=== PATIENT | male | born 1995 ===

== ENCOUNTER 2017-11-07 23:57 | Emergency (ER) | payer BC ==
[2017-11-08 00:42] VITALS: BP 117/76; PULSE 90; RESP 16; TEMP 98.3; O2SAT 98
--- NOTE | 2017-11-08 00:56 | C.PDOC ---
History Of Present Illness 22 year old male presents to the ED c/o right earache for the past 2 days. Patient reports he was swimming a lot during November 04. Patient denies ear D/C, fever, chills, nausea, vomit, rash. Time Seen by Provider: 11/08/17 00:51 Chief Complaint (Nursing): ENT Problem History Per: Patient History/Exam Limitations: None Onset/Duration Of Symptoms: Days Current Symptoms Are (Timing): Still Present Quality (Ear): Pain W/Touch Symptoms Have Been: Continuous Recent Aspirin Use: No Past Medical History Reviewed: Historical Data, Nursing Documentation, Vital Signs Vital Signs: Last Vital Signs Temp 98.3 F 11/08/17 00:36 Pulse 90 11/08/17 00:36 Resp 16 11/08/17 00:36 BP 117/76 11/08/17 00:36 Pulse Ox 98 11/08/17 00:56 - Medical History PMH: No Chronic Diseases Surgical History: Appendectomy, Tonsillectomy Family History: States: Unknown Family Hx - Social History Hx Alcohol Use: Yes Hx Substance Use: No - Immunization History Hx Tetanus Toxoid Vaccination: No Hx Influenza Vaccination: No Hx Pneumococcal Vaccination: No Review Of Systems Constitutional: Negative for: Fever, Chills ENT: Positive for: Ear Pain. Negative for: Ear Discharge, Nose Discharge, Throat Pain, Throat Swelling Respiratory: Negative for: Cough, Shortness of Breath Gastrointestinal: Negative for: Nausea, Vomiting Skin: Negative for: Rash Physical Exam - Physical Exam Appears: Non-toxic, No Acute Distress Skin: Normal Color, Warm, Dry Head: Atraumatic, Normacephalic, No Swelling Eye(s): bilateral: Normal Inspection Ear(s): Left: Normal, Right: Other (tragus tender, erythema to ear canal, TM normal) Nose: No Discharge Oral Mucosa: Moist Throat: Normal, No Erythema, No Exudate Neck: Normal ROM, Supple Neurological/Psych: Oriented x3, Normal Speech Gait: Steady ED Course And Treatment O2 Sat by Pulse Oximetry: 98 (ON RA) Pulse Ox Interpretation: Normal Progress Note: Patient was advised to follow up with PMD in 2 days. Disposition Counseled Patient/Family Regarding: Diagnosis, Rx Given - Disposition Disposition: HOME/ ROUTINE Disposition Time: 00:53 Condition: STABLE Additional Instructions: Please use drops as directed Tylenol or advil for pain Avoid water to ears Return to ER if worse Prescriptions: Neomycin/Polymyxin/Hydrocortis [Cortisporin Otic Susp] 3 drop AD TID #1 bottle Pantoprazole Sodium [Protonix] 40 mg PO DAILY #10 tablet. Instructions: Outer Ear Infection (DC) Forms: [employer] (Bengali) Print Language: UPPER SORBIAN - Clinical Impression Clinical Impression: Otitis externa of right ear - PA / REHAB DIRECTOR / Resident Statement MD/DO has reviewed & agrees with the documentation as recorded. - Scribe Statement The provider has reviewed the documentation as recorded by the Scribe Jose Webb All medical record entries made by the Kayeibliv were at my direction and personally dictated by me. I have reviewed the chart and agree that the record accurately reflects my personal performance of the history, physical exam, medical decision making, and the department course for this patient. I have also personally directed, reviewed, and agree with the discharge instructions and disposition.
== END 2017-11-08 01:10 | disposition home or self-care (01) ==
LOC: C.ER 23:57
DX: H60.91 Unspecified otitis externa, right ear (principal)